=== PATIENT | female | born 1985 | race Caucasian/White ===

== ENCOUNTER 2020-10-20 10:56 | Inpatient (IN) | payer OTHER, SELFPAY ==
[2020-10-20] VITALS (118 sets, daily range): BP systolic 86–162; BP diastolic 39–92; PULSE 35–140; RESP 16; TEMP 36.4–37.7; O2SAT 72–100; BMI 24.2
--- NOTE | 2020-10-20 10:56 | LDADM ---
This patient, Aline Chiu, was admitted to Labor/Delivery/Recovery 109 on 10/20/20 at 10:56. Plans for labor, pain management and were discussed with patient. Patient/family oriented to hospital policies and general routines including ID bracelet, bed and alarms, visiting hours, pain management, procedures, bathroom and other care routines, personal items, smoking policy, room service/diet and guest tray routines, infant security routines, and visiting hours. Patient/Family are encouraged to report perceived risks to care and to ask questions if they do not understand what they are told or what they should do. See OBIX for further documentation.
--- NOTE | 2020-10-20 12:42 | WPDOBADMIT ---
Obstetrics - Admit Note Admission Note: record reviewed. Additions to the history and/or subsequent changes in the physical findings follow. 34 y/o G1 at 37 6/7 weeks here with contractions. Cervix has changed here on L&D. GBS neg. complicated by chronic Lyme disease, on naltrexone 4 mg po daily, has seen MFM. AVSS NST reactive TOCO: contractions every 2-4 min ABD soft, nontender, gravid, vertex EXT nontender Cervix 3/90/-1. AROM with clear fluid. Vertex. A: IUP at term with labor. P: Anticipate .
[2020-10-20 12:47] LABS: Basophils Percent Auto 0.2 % (0.2-1.2); Eosinophils Percent Auto 0.1 % (0-4.4); Hematocrit 38.9 % (37.0-47.0); Hemoglobin 13.6 g/dL (12.0-15.0); Immature Granulocyte Absolute 0.05 K/mm3 (0.00-0.031); Immature Granulocyte Percent A 0.5 % (0-0.5); Lymphocytes Absolute Auto 1.34 K/mm3 (0.9-3.2); Lymphocytes Percent Auto 12.7 % (18.3-44.2); Mean Corpuscular Hemoglobin 32.9 pg (26-34); Mean Corpuscular Volume 94.2 fl (80-100); Mean Platelet Volume 12.8 fl (7.4-10.4); Monocytes Absolute Auto 0.6 K/mm3 (0.1-0.6); Monocytes Percent Auto 5.7 % (2.6-8.5); Neutrophils Absolute Auto 8.5 K/mm3 (1.3-6.7); Neutrophils Percent Auto 80.8 % (45.5-73.1); Platelet Count Result 98 k/mm3 (150-375); Red Blood Count 4.13 M/mm3 (4.2-5.4); Red Cell Distribution Width 12.5 % (11.5-14.5); White Blood Count 10.5 K/mm3 (4.5-10.0)
[2020-10-20] MEDS: LACTATED RINGERS 1,000 ML 125 ML IV CONT ×2 (12:49→13:34)
--- NOTE | 2020-10-20 13:44 | WPDANESEPP ---
Anes - Eval Pre Procedure Procedure: labor epidural Date/Time: 10/20/20 13:44 Preop Diagnosis: labor pain Pre Op Diagnosis: Labor Patient Data Age: 34 Gender: F Height: 5 ft 4 in Weight: 64 kg Last Vital Signs Temp 36.4 C 10/20/20 13:00 Pulse 77 10/20/20 12:30 BP 111/68 10/20/20 12:30 Allergies Allergy/AdvReac Type Severity Reaction Status Date / Time No Known Allergies Allergy Verified 10/10/20 14:43 Home Medications Medication Instructions Recorded Confirmed Type ascorbate calcium (vitamin C) 1,000 mg PO TID 10/10/20 10/10/20 History naltrexone 4.5 mg PO DAILY 10/10/20 10/10/20 History omega-3 fatty acids-vitamin E 1 cap 10/10/20 History [Fish Oil] prenat.vits,bashir,aop-daus-luxgn 1 tablet PO DAILY 10/10/20 10/10/20 History [ #2] vitamin D3-vitamin K2 (MK4) 10/10/20 History Laboratory Tests 10/20/20 10/20/20 10/20/20 12:36 12:36 12:36 WBC 10.5 K/mm3 H K/mm3 (4.5-10.0) RBC 4.13 M/mm3 L M/mm3 (4.2-5.4) Hgb 13.6 g/dL g/dL (12.0-15.0) Hct 38.9 % % (37.0-47.0) MCV 94.2 fl fl (80-100) MCH 32.9 pg pg (26-34) MCHC 35.0 g/dl g/dl (32-36) RDW 12.5 % % (11.5-14.5) Plt Count 98 k/mm3 L k/mm3 (150-375) MPV 12.8 fl H fl (7.4-10.4) Immature Gran % (Auto) 0.5 % % (0-0.5) Neut % (Auto) 80.8 % H % (45.5-73.1) Lymph % (Auto) 12.7 % L % (18.3-44.2) [place] % (Auto) 5.7 % % (2.6-8.5) Eos % (Auto) 0.1 % % (0-4.4) Baso % (Auto) 0.2 % % (0.2-1.2) Lymph # (Auto) 1.34 K/mm3 K/mm3 (0.9-3.2) [place] # (Auto) 0.6 K/mm3 K/mm3 (0.1-0.6) Eos # (Auto) 0.0 K/mm3 K/mm3 (0-0.3) Baso # (Auto) 0.0 K/mm3 K/mm3 (0.0-0.1) Abs Immat Gran (auto) 0.05 K/mm3 H K/mm3 (0.00-0.031) Absolute Neuts (auto) 8.5 K/mm3 H K/mm3 (1.3-6.7) Absolute Nucleated RBC 0.0 K/mm3 K/mm3 (0.0-0.012) Nucleated RBC % 0.0 % % (0.0-0.2) RPR Pending Blood Type O Positive Antibody Screen Negative Patient hx anesthesia problems: none Family hx anesthesia problems: none [facility] Family History Family History (Updated 10/10/20 @ 14:56 by Alvarado Bobby RN) Father TIA (transient ischemic attack) Mother Rheumatoid arthritis Grandparent Cancer Social History Social History Smoking status: Never smoker Substance use: never Spiritual care concerns: No Exam Day of Procedure 10/20/20 13:44
[2020-10-20] MEDS: fentaNYL CITRATE INJ (*CRX) 100 MCG/2 ML VIAL 50 MCG IV PUSH ×2 (13:47→14:39)
--- NOTE | 2020-10-20 17:21 | PM.OBPNLAB ---
Pain Control Date/time seen: 10/20/20 17:21 Comments: Comfortable with epidural. Pelvic Exam Dilation (cm): 6 Effacement (%): 100 station: 0 Contractions Contraction frequency: 3 Contraction pattern: Regular Status status: Category l Assessment and Plan Comments: A: IUP at term with labor. Gestational thrombocytopenia. P: Routine care. Anticipate .
[2020-10-20] MEDS: OXYTOCIN 30 UNITS/NS 500 ML 30 UNITS/500 ML BAG 999 UNITS IV CONT (20:15)
--- NOTE | 2020-10-20 20:31 | PM.OBPRVD ---
OB - Delivery Note Procedure Procedure: Patient pushed for a spontaneous vaginal delivery. The fetus was delivered atraumatically and placed on the maternal abdomen. The cord was clamped and cut after 1 minute of life. The cord was double clamped and cut and a segment of cord was collected for cord gases. Cord blood was collected for blood type and Coomb's testing. The placenta delivered spontaneously and was noted to be intact. The perineum was inspected and there was a 2nd degree perineal laceration and left labial laceration. The lacerations were repaired with 2-0 vicryl in the usual fashion. The uterus was firm and good hemostasis was noted. The patient and fetus were stable in the delivery room. Intrapartal events: None Induction method: none Delivery augmentation: rupture of membranes Delivery monitor: external FHT Route of delivery: Episiotomy description: None Laceration Description: Perineal - 2nd Degree and Labial (left) Delivery repair: vicryl Specimen: No Quantitative Blood Loss (ml): 250 Anesthesia type: Epidural Disposition: floor () Complications: No immediate complications Baby Date of : 10/20/20 Time of : 20:10 Weeks of gestation at delivery: 37 gender: Female Weight (pounds): 7 Weight (ounces): 1 presentation: vertex position: Right Occiput Anterior Placenta delivery description: Spontaneous cord vessel description: 3 Vessels score one minute: 8 score five minutes: 9
[2020-10-20] MEDS: IBUPROFEN 600 MG TABLET PO (22:08)
[2020-10-20] MEDS: WITCH HAZEL 40 PADS 1 PAD TOPICAL (22:08)
[2020-10-21] MEDS: IBUPROFEN 600 MG TABLET PO ×2 (04:25→12:43)
[2020-10-21 05:57] LABS: Hematocrit 32.1 % (37.0-47.0); Hemoglobin 11.1 g/dL (12.0-15.0)
--- NOTE | 2020-10-21 07:34 | PM.OBPNVD ---
OB - PN: Subj Subjective Date/time seen: 10/21/20 07:34 Patient comments: no complaints, pain well controlled and tolerating diet [place] feeding status: exclusively breast feeding Narrative: patient doing well this AM. Reports some perineal discomfort. Pain is managed with PO meds. She reports minimal bleeding. She is ambulating and voiding without difficulty. She is tolerating PO. She denies N/V, fever, chills. OB - PN: Obj Data Labs CBC & Chem 7: 10/21/20 04:10 Labs: Laboratory Results - last 24 hr 10/20/20 10/20/20 10/21/20 12:36 12:36 04:10 WBC 10.5 H RBC 4.13 L Hgb 13.6 11.1 L Hct 38.9 32.1 L MCV 94.2 MCH 32.9 MCHC 35.0 RDW 12.5 Plt Count 98 L MPV 12.8 H Immature Gran % (Auto) 0.5 Neut % (Auto) 80.8 H Lymph % (Auto) 12.7 L [place] % (Auto) 5.7 Eos % (Auto) 0.1 Baso % (Auto) 0.2 Lymph # (Auto) 1.34 [place] # (Auto) 0.6 Eos # (Auto) 0.0 Baso # (Auto) 0.0 Abs Immat Gran (auto) 0.05 H Absolute Neuts (auto) 8.5 H Absolute Nucleated RBC 0.0 Nucleated RBC % 0.0 Blood Type O Positive Antibody Screen Negative OB - PN A/P Plan day: 1 Plan: routine care Comments: patient doing well H/H stable continue routine care Time Spent With Patient Time: Total time spent is greater than 50% in coordination of care (as documented) at patient's floor/unit and/or counseling patient: Time with patient: less than 15 minutes Review of Systems Review of Systems: All systems reviewed & are unremarkable except as noted in HPI and below Exam Const: General: comfortable and no acute distress Resp: Effort & Inspection: normal respiratory effort Cardio: Rate: regular rate GI: GI Palp: Yes Soft to palpation and No Tenderness to palpation present (GI) Auscultation: normal bowel sounds Other: fundus firm and below umbilicus. Psych: Affect: normal affect
--- NOTE | 2020-10-21 07:40 | WPDANLDPN2 ---
Anes-Prog Note L&D Date/Time: 10/21/20 07:40 Comfortable throughout: labor and delivery Neuraxial method: epidural Epidural/Spinal procedure site: clean & non-tender Neuro status: Neuro function grossly intact. Cardiovascular status: normal Respiratory status: normal Airway patency: baseline Mental status: baseline Post-Op hydration status: normal Vital Signs: Last Vital Signs Temp 36.9 C 10/20/20 23:13 Pulse 69 10/20/20 23:13 Resp 16 10/20/20 23:13 BP 116/66 10/20/20 23:13 Pulse Ox 77 L 10/20/20 20:08 Pain score (VAS): 0/10. Patient resting in bed at time of assessment, appears comfortable. Support person at bedside. I/O: Intake & Output 10/20/20 10/20/20 10/21/20 15:59 23:59 07:59 Intake Total 1000 1500 Output Total 30 Balance 1000 1470 Patient feedback: Patient satisfied with anesthetic care.
[2020-10-21 08:05] VITALS: BP 112/71; PULSE 71; RESP 18; TEMP 36.8
[2020-10-21] MEDS: DOCUSATE SODIUM 100 MG CAPSULE PO (09:24)
[2020-10-21] MEDS: MULTIVIT/MIN/PREN/FOL AC/IRON TABLET 1 TAB PO (09:24)
[2020-10-21 10:23] LABS: Rapid Plasma Reagin Non-Reactive (NonReactive)
[2020-10-21] MEDS: ACETAMINOPHEN 325 MG TABLET 650 MG PO (14:55)
--- NOTE | 2020-10-21 16:02 | PC.NURSE ---
1545 note 1100 nurse has been working with this family since 09, attempting to breast feed. Parents report baby has been sleepy but not more awake. Mother reports last feeding at 0715, was 15 minutes, but really baby only sucked a couple of times . Mother did use nipple shield at feeding just after delivery. this time, baby made good attempts to latch to feed; numerous attempts made, in cross-cradle and football positions; baby unable to latch and maintain latch; mother has everted nipples, smaller breasts. Nipple shield placed, and mother taught how to place nipple shield correctly. By this time in the feeding, baby had shut down, and quit trying. Nursed worked with cuplet for about 30 minutes to try to get to nurse; Because of ineffective feeding for last two feeds, parents in agreement to start feeding plan of attempt breast, pump and bottle feeding infant. they were shown paced bottle feeding, and baby took the feeding eagerly, and burped easily. Mother fed , and FOB will bottle feed next time. Baby took 20cc, and parents to give at least 15cc each feeding, understanding that when baby is ready for more at each feeding they can gradually increase the amount, and give what she wants. Mother set up with breast pump; 24mm flanges used and mother reports comfortable pumping; reviewed pump set up and care of equipment. Parents have the Mother Baby guide; breast feeding pages highlighted including LC contact information; reviewed with them frequency of feedings, attempting no more than 15 minutes, and then pumping at each feeding and bottle feeding. Parents attentive; they have many questions and questions were answered. Parents encouraged to stay determined with breast feeding, as baby will grow and change every day. Encouraged to pump consistently, to get mother's milk in. They voiced agreement with this plan, and voiced understanding of all information shared. 1430 Worked with parents again; brief attempt to latch to breast, then nipple shield placed; baby seemed to latch, but just held nipple in her mouth. Reviewed again with parents, 15 minute attempt, then pump and bottle feed. FOB fed this feeding; reviewed positioning for bottle feeding, paced bottle feeding and burping techniques. Parents compliant with recommended feeding plan and voiced understanding.
[2020-10-21 20:11] VITALS: BP 125/78; PULSE 75; RESP 16; TEMP 36.8
[2020-10-22] MEDS: IBUPROFEN 600 MG TABLET PO (04:20)
--- NOTE | 2020-10-22 08:01 | PM.OBDSVD ---
DS: Admitting Diagnosis Admitting Diagnosis Admitting Diagnosis: single intrauterine in the third trimester OB - DS: Summary OB Procedures : None OB Procedures Intrapartum: Spontaneous Vag Delivery OB Procedures: : None Status at Discharge Functional status at discharge: independent ambulation Overall status at discharge: patient is back to baseline Time Spent with Patient Time attestation: Total time spent providing and/or coordinating discharge services: Time spent: Less than 30 minutes Exam Const: General: comfortable and no acute distress Resp: Effort & Inspection: normal respiratory effort Auscultation: clear to auscultation bilaterally Cardio: Rate: regular rate GI: GI Palp: Yes Soft to palpation Auscultation: normal bowel sounds Other: Fundus firm below umbilicus Psych: Appearance: grossly normal Mental Status: mental status grossly normal Affect: normal affect DS: Data Data Completed and Pending Labs on day of discharge: Labs from last 24 hours 10/20/20 12:36 RPR Non-reactive Discharge Plan Discharge Discharging Clinician: Milton Rojas Patient Disposition: Home, Self-Care Activity: as tolerated and pelvic rest Diet: regular Patient Instructions: Antibiotic Form, Vaginal Delivery (DC) Stand Alone Forms: General Discharge Information Follow-up/Referrals: Brayan Singh MD [Physician] - 4 Weeks Discharge Medications: New acetaminophen [Mapap (acetaminophen)] 325 mg Tablet 650 mg PO Q6H PRN (Reason: Mild Pain (1-3) Or Headache) Qty: 30 RF: 0 Dermoplast (with menthol) 20-0.5 % Aerosol 1 spray topical PRN PRN (Reason: Perineal Discomfort) Qty: 1 RF: 0 ibuprofen 600 mg Tablet 600 mg PO Q6H PRN (Reason: Cramping) Qty: 30 RF: 0 Rvw-K-Gzlqqy Cream 1 applic topical PRN PRN (Reason: Sore Nipples) Qty: 1 RF: 0 docusate sodium 100 mg Capsule 100 mg PO BID PRN (Reason: Constipation) Qty: 30 RF: 0 Continued naltrexone 50 mg Tablet 4.5 mg PO DAILY RF: 0 #2 Tablet 1 tablet PO DAILY RF: 0 ascorbate calcium (vitamin C) 500 mg Capsule 1,000 mg PO TID RF: 0 vitamin D3-vitamin K2 (MK4) RF: 0 Fish Oil 1,000 mg Capsule 1 cap RF: 0 Date of admission: 10/20/20 10:56 Primary Care Provider: PHYSICIAN,SUPERVISOR [employer] Admitting Provider: Brayan Singh Attending physician on admission: Brayan Singh Condition: Stable
[2020-10-22 08:15] VITALS: BP 110/65; PULSE 71; RESP 20; TEMP 36.6; O2SAT 100
[2020-10-22] MEDS: MULTIVIT/MIN/PREN/FOL AC/IRON TABLET 1 TAB PO (08:48)
[2020-10-22] MEDS: DOCUSATE SODIUM 100 MG CAPSULE PO (08:48)
--- NOTE | 2020-10-22 12:43 | PC.NURSE ---
Patient viewed the discharge video Mother & Baby Care, The First Two Weeks . Patient was given the opportunity and encouraged to ask questions. Patient verbalized understanding of information shared and has been given the mother/baby guide for home reference.
[2020-10-24 08:23] VITALS: BP 122/68; PULSE 81; RESP 16; TEMP 37.4; O2SAT 99
== END 2020-10-22 14:45 | disposition home or self-care (01) | DRG 806 ==
LOC: ANHOB2 10-22 11:40 → ANHLDR 10-25 11:32 → ANHOB2 10-25 11:32
PROVIDERS: Admitting Provider Obstetrics & Gynecology; Visit Provider Student in an Organized Health Care Education/Training Program
DX: O98.52 Other viral diseases complicating childbirth (principal); O99.12 Other diseases of the blood and blood-forming organs and certain disorders involving the immune mechanism complicating childbirth; Z37.0 Single live birth; A69.20 Lyme disease, unspecified; Z3A.37 37 weeks gestation of pregnancy; D69.6 Thrombocytopenia, unspecified; O70.1 Second degree perineal laceration during delivery
CPT/HCPCS: 36415; 85014; 85018; 85025; 86592; 86850; 86900; 86901; A9270; J2590; J2795; J3010; J7120

== ENCOUNTER 2024-02-04 20:54 | Inpatient (IN) | payer OTHER, SELFPAY ==
[2024-02-04] VITALS (37 sets, daily range): BP systolic 112–162; BP diastolic 59–86; PULSE 65–98; TEMP 36.6; O2SAT 97–100; BMI 24.0
[2024-02-04 22:07] LABS: Basophils Percent Auto 0.4 % (0.2-1.2); Eosinophils Percent Auto 0.5 % (0-4.4); Hematocrit 36.6 % (37.0-47.0); Hemoglobin 12.4 g/dL (12.0-15.0); Immature Granulocyte Absolute 0.03 K/mm3 (0.00-0.031); Immature Granulocyte Percent A 0.4 % (0-0.5); Immature Platelet Fraction Pct 25.2 % (0.9-11.2); Lymphocytes Absolute Auto 1.46 K/mm3 (0.9-3.2); Lymphocytes Percent Auto 18.5 % (18.3-44.2); Mean Corpuscular HGB Conc 33.9 g/dl (32-36); Mean Corpuscular Hemoglobin 31.6 pg (26-34); Mean Corpuscular Volume 93.1 fl (80-100); Mean Platelet Volume 14.3 fl (7.4-10.4); Monocytes Absolute Auto 0.7 K/mm3 (0.1-0.6); Monocytes Percent Auto 9.4 % (2.6-8.5); Neutrophils Absolute Auto 5.6 K/mm3 (1.3-6.7); Neutrophils Percent Auto 70.8 % (45.5-73.1); Platelet Count Result 96 k/mm3 (150-375); Red Blood Count 3.93 M/mm3 (4.2-5.4); Red Cell Distribution Width 12.6 % (11.5-14.5); White Blood Count 7.9 K/mm3 (4.5-10.0)
[2024-02-04] MEDS: LACTATED RINGERS 1,000 ML 125 ML IV CONT ×2 (22:10→23:08)
--- NOTE | 2024-02-04 22:20 | LDADM ---
This patient, Aline Chiu, was admitted to Labor/Delivery/Recovery 107 on 02/04/24 at 20:54. Plans for labor, pain management and were discussed with patient. Patient/family oriented to hospital policies and general routines including ID bracelet, bed and alarms, visiting hours, pain management, procedures, bathroom and other care routines, personal items, smoking policy, room service/diet and guest tray routines, infant security routines, and visiting hours. Patient/Family are encouraged to report perceived risks to care and to ask questions if they do not understand what they are told or what they should do. See OBIX for further documentation.
[2024-02-04 22:33] LABS: Anisocytosis 1+; Large Platelets Present; Platelet Estimate Decreased (Adequate); Schistocytes None Seen
--- NOTE | 2024-02-04 22:58 | WPDANESEPP ---
Anes - Eval Pre Procedure Procedure: Labor epidural Date/Time: 02/04/24 22:58 Surgeon: Francisco Preop Diagnosis: Abdominal pain with contractions Pre Op Diagnosis: Contractions Patient Data Age: 38 Gender: F Height: 1.63 m Weight: 63.6 kg Last Vital Signs Pulse 72 02/04/24 22:30 BP 133/79 02/04/24 22:30 O2 Del Method Room Air 02/04/24 22:20 Allergies Allergy/AdvReac Type Severity Reaction Status Date / Time No Known Allergies Allergy Verified 02/04/24 22:42 Home Medications Medication Instructions Recorded Confirmed Type ascorbate calcium (vitamin C) 500 1,000 mg PO TID 10/10/20 10/20/20 History mg capsule naltrexone 50 mg tablet 4.5 mg PO DAILY 10/10/20 10/20/20 History omega-3 fatty acids-vitamin E 1 cap 10/10/20 History 1,000 mg capsule prenat.vits,bashir,juf-upei-ocsbz 1 tablet PO DAILY 10/10/20 02/04/24 History vitamin D3-vitamin K2 (MK4) 10/10/20 History acetaminophen 325 mg tablet (Mapap 650 mg PO Q6H PRN Mild Pain (1-3) 10/22/20 Rx (acetaminophen)) Or Headache #30 tabs benzocaine 20 %-menthol 0.5 % 1 spray topical PRN PRN Perineal 10/22/20 Rx topical aerosol (Dermoplast (with Discomfort #1 g menthol)) docusate sodium 100 mg capsule 100 mg PO BID PRN Constipation #30 10/22/20 Rx caps ibuprofen 600 mg tablet 600 mg PO Q6H PRN Cramping #30 tabs 10/22/20 Rx lanolin (Gwl-K-Xbxqgu topical 1 applic topical PRN PRN Sore 10/22/20 Rx cream) Nipples #1 g Laboratory Tests 02/04/24 21:53 WBC 7.9 K/mm3 (4.5-10.0) RBC 3.93 L M/mm3 (4.2-5.4) Hgb 12.4 g/dL (12.0-15.0) Hct 36.6 L % (37.0-47.0) MCV 93.1 fl (80-100) MCH 31.6 pg (26-34) MCHC 33.9 g/dl (32-36) RDW 12.6 % (11.5-14.5) Plt Count 96 L k/mm3 (150-375) MPV 14.3 H fl (7.4-10.4) Immature Gran % (Auto) 0.4 % (0-0.5) Neut % (Auto) 70.8 % (45.5-73.1) Lymph % (Auto) 18.5 % (18.3-44.2) [place] % (Auto) 9.4 H % (2.6-8.5) Eos % (Auto) 0.5 % (0-4.4) Baso % (Auto) 0.4 % (0.2-1.2) Lymph # (Auto) 1.46 K/mm3 (0.9-3.2) [place] # (Auto) 0.7 H K/mm3 (0.1-0.6) Eos # (Auto) 0.0 K/mm3 (0-0.3) Baso # (Auto) 0.0 K/mm3 (0.0-0.1) Abs Immat Gran (auto) 0.03 K/mm3 (0.00-0.031) Absolute Neuts (auto) 5.6 K/mm3 (1.3-6.7) Absolute Nucleated RBC 0.000 K/mm3 (0.0-0.012) Nucleated RBC % 0.0 % (0.0-0.2) Platelet Estimate Decreased (Adequate) Large Platelets Present % Immature Plt Fraction 25.2 H % (0.9-11.2) Anisocytosis 1+ Schistocytes None seen RPR Pending Blood Type Pending Antibody Screen Pending : gestational age HCG: positive Patient hx anesthesia problems: none Family hx anesthesia problems: none Results Review: All pre-operative results and documents have been reviewed as part of the pre-operative evaluation. [facility] Past Medical History Medical History Lyme disease and not yet delivered Family History Family History Father Alzheimer's dementia TIA (transient ischemic attack) Mother Rheumatoid arthritis Grandparent Cancer Grandparent Cerebrovascular accident Social History Social History Smoking status: Never smoker Substance use: never Do You Feel Safe in your Home?: Yes Lack of Transportation: No Lack of Food: Never True Current Housing: I Do Not Have Housing Concerned About Future Housing: No Difficulty Paying Gas/Electric Bills: No Difficulty Paying for Meds: No Currently Unemployed: No Education: Master's Degree or Higher Difficulty w/ Childcare or Family Care: No Spiritual care concerns: No Exam Day of Procedure 02/04/24 22:58 Patient weight: normal
[2024-02-05] VITALS (99 sets, daily range): BP systolic 103–143; BP diastolic 57–109; PULSE 61–99; RESP 14–18; TEMP 36.4–37.2; O2SAT 98–100
--- NOTE | 2024-02-05 05:20 | WPDOBADMIT ---
Obstetrics - Admit Note Admission Note: record reviewed. Additions to the history and/or subsequent changes in the physical findings follow. 38 y/o at 38 4/7 weeks here with contractions. GBS neg. Gestational thrombocytopenia with platelets 100K over the last 3 weeks. Now comfortable with epidural. AVSS NST reactive TOCO: contractions every 2-3 min ABD soft, nontender, gravid, vertex EXT nontender Cervix 9/100/0. AROM with clear fluid. Vertex. A: IUP at term with labor. Gestational thrombocytopenia. P: Anticipate .
--- NOTE | 2024-02-05 06:10 | PM.OBPNLAB ---
Pain Control Date/time seen: 02/05/24 06:10 AVSS NST reactive TOCO: contractions every 2-3 min Cervix C/+2 Pushing.
[2024-02-05] MEDS: OXYTOCIN 30 UNITS/NS 500 ML 30 UNITS/500 ML BAG 999 UNITS IV CONT (06:26)
--- NOTE | 2024-02-05 06:46 | PM.OBPRVD ---
OB - Vaginal Delivery Note Procedure Delivery date: 02/05/24 Delivery augmentation: Rupture of Membranes Delivery monitor: External FHT and External Uterine Route of delivery: Laceration Description: Perineal - 2nd Degree Delivery repair: vicryl (3-0) Specimen: Yes (cord blood) Quantitative Blood Loss (ml): 240 Anesthesia type: Epidural Disposition: PACU Complications: None Narrative: 38 y/o at 38 4/7 weeks gestation who presented to the hospital with contractions. Labor was diagnosed. She received an epidural for pain control. Amniotomy was performed with return of clear fluid. Her labor progressed and her cervix dilated completely. She pushed with good effort and delivered the infant's head to the perineum, followed by the body. The nose and mouth were bulb suctioned. After a delay, the cord was clamped and cut. The infant was handed off the field. Cord blood was collected. The placenta delivered spontaneously and was grossly normal in appearance. The usual 3 vessel cord was noted. A second degree midline perineal laceration was sustained. This was reapproximated using 3 0 Vicryl in the usual layered fashion. Excellent hemostasis resulted as did excellent reapproximation of the normal anatomy. Needle and instrument counts were correct. The patient was taken to recovery room in stable condition. The went to the nursery in stable condition. I was present and scrubbed for the entire delivery. [place] Baby Date of : 02/05/24 Time of : 06:24 Weeks of gestation at delivery: 38 Infant gender: Male presentation: vertex position: Right Occiput Anterior Placenta delivery description: Spontaneous and Normal Configuration Cord Vessel Description: 3 Vessels and Delayed Cord Clamping
--- NOTE | 2024-02-05 06:48 | PM.OBDSVD ---
DS: Admitting Diagnosis Discharge Date 02/06/24 Admitting Diagnosis IUP at 38 4/7 weeks Labor Gestational thrombocytopenia DS: Discharge Diagnosis Discharge Diagnosis (1) (normal spontaneous vaginal delivery): Code(s): O80 - Encounter for full-term uncomplicated delivery Status: Acute (2) Gestational thrombocytopenia: Code(s): O99.119 - Other diseases of the blood and blood-forming organs and certain disorders involving the immune mechanism complicating , unspecified trimester; D69.6 - Thrombocytopenia, unspecified Status: Acute OB - DS: Summary OB Procedures : None OB Procedures Intrapartum: Spontaneous Vag Delivery OB Procedures: : None Peripartum Data Laceration Description: Perineal - 2nd Degree Time Spent with Patient Time attestation: Total time spent providing and/or coordinating discharge services: DS: Data Data Completed and Pending Labs on day of discharge: Labs from last 24 hours 02/04/24 21:53 WBC 7.9 RBC 3.93 L Hgb 12.4 Hct 36.6 L MCV 93.1 MCH 31.6 MCHC 33.9 RDW 12.6 Plt Count 96 L MPV 14.3 H Immature Gran % (Auto) 0.4 Neut % (Auto) 70.8 Lymph % (Auto) 18.5 [place] % (Auto) 9.4 H Eos % (Auto) 0.5 Baso % (Auto) 0.4 Lymph # (Auto) 1.46 [place] # (Auto) 0.7 H Eos # (Auto) 0.0 Baso # (Auto) 0.0 Abs Immat Gran (auto) 0.03 Absolute Neuts (auto) 5.6 Absolute Nucleated RBC 0.000 Nucleated RBC % 0.0 Platelet Estimate Decreased Large Platelets Present % Immature Plt Fraction 25.2 H Anisocytosis 1+ Schistocytes None seen RPR Pending Blood Type O Positive Antibody Screen Negative Discharge Plan Discharge Attending physician on discharge: Brayan Singh Discharging Clinician: Brayan Singh Patient Disposition: Home, Self-Care Activity: pelvic rest Diet: regular Discharge Instructions: Call or return if temperature above 100.4? F, increased abdominal pain, increased vaginal bleeding or any new problems. Stand Alone Forms: General Discharge Information Follow-up/Referrals: Brayan Singh MD [Physician] - 6 Weeks Discharge Medications: New ibuprofen 600 mg tablet 600 mg PO Q6H PRN (Reason: cramps) Qty: 30 0RF Continued prenat.vits,bashir,onr-dpni-eytgb Tablet 1 tablet PO DAILY Date of admission: 02/04/24 20:54 Primary Care Provider: PHYSICIAN,HOT WALKER Admitting Provider: Brayan Singh Attending physician on admission: Brayan Singh Condition: Stable
[2024-02-05] MEDS: OXYTOCIN 30 UNITS/NS 500 ML 30 UNITS/500 ML BAG 125 UNITS IV CONT (07:00)
[2024-02-05] MEDS: BENZOCAINE 20% AER SPR (*SP) 56 GM CAN 1 SPRAY TOPICAL (08:49)
[2024-02-05] MEDS: WITCH HAZEL 40 PADS 1 PAD TOPICAL (08:49)
[2024-02-05 09:10] LABS: Rapid Plasma Reagin Non-Reactive (NonReactive)
--- NOTE | 2024-02-05 09:38 | PC.NURSE ---
Patient transferred to post room #280 via wheelchair. Support person present. Oriented to unit, room, information board, rooming in, admission packet and security measures. Patient verbalizes understanding.
[2024-02-05] MEDS: DOCUSATE SODIUM 100 MG CAPSULE PO ×2 (10:10→17:09)
[2024-02-05] MEDS: IBUPROFEN 600 MG TABLET PO ×2 (10:10→19:52)
[2024-02-06 03:45] VITALS: BP 113/71; PULSE 68; RESP 16; TEMP 37.2; O2SAT 100
[2024-02-06] MEDS: IBUPROFEN 600 MG TABLET PO (04:00)
[2024-02-06 07:35] VITALS: BP 107/63; PULSE 73; RESP 16; TEMP 37.1; O2SAT 100
--- NOTE | 2024-02-06 11:46 | WPDANLDPN2 ---
Anes-Prog Note L&D Date/Time: 02/06/24 11:46 Neuro status: Neuro function grossly intact. Cardiovascular status: normal Respiratory status: normal Airway patency: baseline Mental status: baseline Post-Op hydration status: normal Vital Signs: Last Vital Signs Temp 37.1 C 02/06/24 07:35 Pulse 73 02/06/24 07:35 Resp 16 02/06/24 07:35 BP 107/63 02/06/24 07:35 Pulse Ox 100 02/06/24 07:35 O2 Del Method Room Air 02/06/24 03:45 Pain score (VAS): 0 I/O: Intake & Output 02/05/24 02/06/24 02/06/24 23:59 07:59 15:59 Intake Total 240 Balance 240 Post-procedural complaints: none Patient feedback: Patient satisfied with anesthetic care.
--- NOTE | 2024-02-06 12:18 | PM.OBPNVD ---
OB - PN: Subj Subjective Date/time seen: 02/06/24 12:18 Narrative: Pain OK. Wants circumcision for son. Would like to go home. OB - PN: Obj Data Labs 02/06/24 03:39 Labs: Laboratory Results - last 24 hr 02/06/24 03:39 Hgb 11.0 L Hct 34.0 L OB - PN A/P Plan Comments: A: PPD#1, doing well. P: Reviewed circ. Home to f/u 6 weeks. Exam Psych: Other: AVSS ABD soft, nontender, fundus firm EXT nontender
[2024-02-07 11:21] VITALS: BP 110/66; PULSE 96; RESP 18; TEMP 36.9; O2SAT 99
== END 2024-02-06 14:50 | disposition home or self-care (01) | DRG 807 ==
LOC: ANHLDR 02-05 05:26 → ANHOB2 02-05 09:41
PROVIDERS: Admitting Provider Obstetrics & Gynecology; Visit Provider Obstetrics & Gynecology
DX: O99.12 Other diseases of the blood and blood-forming organs and certain disorders involving the immune mechanism complicating childbirth (principal); Z37.0 Single live birth; O70.1 Second degree perineal laceration during delivery; Z3A.38 38 weeks gestation of pregnancy
CPT/HCPCS: 36415; 85014; 85018; 85025; 85055; 86592; 86850; 86900; 86901; A9270; J2590; J7120